=== PATIENT | female | born 1945 | race Two or more races ===

== ENCOUNTER 2023-01-03 18:52 | Emergency (ER) | payer SELFPAY ==
[~2023-01-03] VITALS: Ht 165.1 cm; Wt 91.0 kg
[2023-01-03 18:55] VITALS: TEMP 98.6; O2SAT 98
[2023-01-03 19:15] VITALS: BP 175/114; PULSE 111; RESP 20
[2023-01-03] MEDS ORDERED: ONDANSETRON 4MG ODT PO ONE (19:15)
[2023-01-03] MEDS ORDERED: IBUPROFEN 600MG TABLET PO ONE (19:15)
[2023-01-03 19:29] LABS: HEMATOCRIT 41.1 % (36.0-48.0); HEMOGLOBIN 14.1 g/dL (12.0-16.0); MEAN CORPUSCULAR HEMOGLOBIN 31.4 pg (28.0-32.0); MEAN CORPUSCULAR VOLUME 91.8 fL (81.0-99.0); PLATELET 93 x1000/uL (130-400); RED BLOOD CELL COUNT 4.47 mill/uL (4.2-5.4); RED CELL DISTRIBUTION WIDTH 15.4 % (11.6-14.6)
[2023-01-03] MEDS ORDERED: METOCLOPRAMIDE HCL 10MG TABLET PO ONE (19:30)
[2023-01-03 19:36] LABS: CHLORIDE 106 mEq/L (98-107)
== END 2023-01-03 20:13 | disposition left against medical advice (07) ==
LOC: ER 18:53
DX: R11.2 Nausea with vomiting, unspecified (principal); E11.9 Type 2 diabetes mellitus without complications; I10 Essential (primary) hypertension; Z53.21 Procedure and treatment not carried out due to patient leaving prior to being seen by health care provider; V49.9XXA Car occupant (driver) (passenger) injured in unspecified traffic accident, initial encounter; Y93.89 Activity, other specified; Y92.89 Other specified places as the place of occurrence of the external cause; Y99.8 Other external cause status
CPT/HCPCS: 99283; 80053; 82962; 83690; 85027; 84484; 36415; J8597; Q0162